=== PATIENT | female | born 1980 | race Two or more races ===

== ENCOUNTER 2016-10-24 09:53 | Emergency (ER) | payer OTHER ==
[2016-10-24 09:58] VITALS: BP 138/90; PULSE 105; TEMP 98; BMI 24.3
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
== END 2016-10-24 11:58 | disposition home or self-care (01) ==
LOC: JERFT 09:53
PROC: 2W3MX1Z Immobilization of Left Lower Extremity using Splint (ICD-10-PCS; principal; 2016-10-24)
DX: S93.402A Sprain of unspecified ligament of left ankle, initial encounter (principal); W01.0XXA Fall on same level from slipping, tripping and stumbling without subsequent striking against object, initial encounter; Y93.67 Activity, basketball; Y92.310 Basketball court as the place of occurrence of the external cause; Y99.8 Other external cause status
CPT/HCPCS: 29515; 73610-TC-LT; 99282-25